=== PATIENT | female | born 1990 | race Two or more races ===

== ENCOUNTER 2022-08-27 12:40 | Emergency (ER) | payer OTHER ==
[~2022-08-27] VITALS: Ht 152.4 cm; Wt 61.2 kg
[~2022-08-27 12:40] MED LIST: ENALAPRIL MALE2.5 MG; K-TAB10 MEQ PO; NAPR500T14 PO; OXYC1TAB9 PO; PEPCID40 MG PO; PRENATE ADVANCE PO; PROTONIX40 MG PO; ZOFRAN8 MG PO; ZYRTEC10 M3 PO
[2022-08-27] MEDS ORDERED: PANTOPRAZOLE SO40 MG (14:21)
== END 2022-08-27 17:17 | disposition home or self-care (01) ==
LOC: ER 12:40
DX: M94.0 Chondrocostal junction syndrome [Tietze] (principal); Z76.5 Malingerer [conscious simulation]

== ENCOUNTER 2023-05-03 14:00 | Emergency (ER) | payer OTHER ==
[~2023-05-03] VITALS: Ht 152.4 cm; Wt 70.3 kg
[~2023-05-03 14:00] MED LIST changes: +PANTOPRAZOLE SO40 MG
== END 2023-05-03 20:17 | disposition home or self-care (01) ==
LOC: ER 14:00
DX: R20.0 Anesthesia of skin (principal)